=== PATIENT | male | born 2000 | race Two or more races ===

== ENCOUNTER 2023-07-15 01:16 | Emergency (ER) | payer OTHER ==
[~2023-07-15] VITALS: Ht 165.1 cm; Wt 72.6 kg
[2023-07-15 03:45] LABS: HEMATOCRIT 41.6 % (39.0-48.0); MEAN CELL VOLUME 85.1 fL (80.0-100.00); MEAN CORPUSCULAR HEMOGLOBIN 28.7 pg (27.00-32.0); MEAN CORPUSCULAR HGB CONC 33.7 g/dl (32.0-36.0); PLATELET COUNT 202 K/uL (150-450); RED BLOOD COUNT 4.89 M/uL (4.00-6.00); RED CELL DISTRIBUTION WIDTH 14.5 % (11.5-14.5)
[2023-07-15 04:00] LABS: CALCIUM 9.4 mg/dL (8.5-10.1); CREATININE SERUM 1.07 mg/dL (0.70-1.30); GFR 85.64; POTASSIUM 4.18 mEq/L (3.5-5.1)
== END 2023-07-15 05:24 | disposition home or self-care (01) ==
LOC: ER 01:17
DX: J03.90 Acute tonsillitis, unspecified (principal); Z20.822 Contact with and (suspected) exposure to COVID-19